=== PATIENT | male | born 1965 | race Caucasian/White ===

== ENCOUNTER 2016-12-14 13:08 | Inpatient (IN) | payer MEDICARE, MEDICAID ==
[~2016-12-14] VITALS: Ht 188 cm; Wt 93.0 kg
[2016-12-14 13:22] LABS: GLUCOSE,POINT OF CARE 143 MG/DL (70-110)
[2016-12-14] MEDS ORDERED: TOPI100 PO (13:26)
[2016-12-14] MEDS ORDERED: LAMO100 PO (13:26)
[2016-12-14] MEDS ORDERED: LEVE500T53 PO (13:26)
[2016-12-14] MEDS ORDERED: LORazepam 2 MG/ML VIAL IM ONE (13:45)
[2016-12-14] MEDS ORDERED: ZOLPIDEM TARTRATE 10 MG TABLET PO PRN (14:00)
[2016-12-14 14:01] LABS: BASOPHILS # (AUTO) 0.05 K/uL (0.00-0.20); BASOPHILS % (AUTO) 0.6 % (0.0-2.0); EOSINOPHILS # (AUTO) 0.01 K/uL (0.00-0.70); EOSINOPHILS % (AUTO) 0.06 % (1.0-6.0); HEMATOCRIT 44.3 % (41-53); HEMOGLOBIN 14.7 g/dL (13.5-17.5); LYMPHOCYTES # (AUTO) 0.8 K/uL (1.0-4.8); LYMPHOCYTES % (AUTO) 9.3 % (22.0-44.0); MEAN CORPUSCULAR HEMOGLOBIN 30.5 pg (26.0-34.0); MEAN CORPUSCULAR HGB CONC 33.1 G/dL (31.0-37.0); MEAN CORPUSCULAR VOLUME 92 fL (80-100); MONOCYTES # (AUTO) 0.8 K/uL (0.1-1.0); MONOCYTES % (AUTO) 8.4 % (2.0-9.0); NEUTROPHILS # (AUTO) 7.3 K/uL (1.8-7.7); NEUTROPHILS % (AUTO) 81.7 % (40.0-70.0); PLATELET COUNT (AUTO) 213 K/uL (150-450); RED BLOOD CELL COUNT(AUTO) 4.81 MIL/uL (4.50-5.90); RED CELL DISTRIBUTION WIDTH 13.2 % (11.5-14.5)
[2016-12-14 14:13] LABS: ANION GAP 13 mmol/L (8-16); CALCIUM, TOTAL 9.1 mg/dL (8.8-10.5); CARBON DIOXIDE 25 mmol/L (22-29); CHLORIDE 107 mmol/L (98-107); CREATININE 1.51 mg/dL (0.60-1.30); GLOMERULAR FILTR. RATE CALC 49 mL/min (>60); POTASSIUM 3.3 mmol/L (3.5-5.1); SODIUM SERUM 145 mmol/L (136-145); UREA NITROGEN, BLOOD 18 mg/dL (7-18)
[2016-12-14 14:19] LABS: ALANINE AMINOTRANSFERASE 50 U/L (12-78); ALBUMIN 4.2 g/dL (3.4-5.0); ASPARTATE AMINOTRANSFERASE 59 U/L (15-37); BILIRUBIN,TOTAL 1.8 mg/dL (0.1-1.0); TOTAL PROTEIN, SERUM 7.5 g/dL (6.4-8.2)
[2016-12-14 16:02] VITALS: BP 129/84
[2016-12-14] MEDS ORDERED: POTASSIUM CHLORIDE 20 MEQ ER TABLET PO ONE (17:00)
[2016-12-14] MEDS: BACITRACIN 28.4 GM OINTMENT TP SCH (17:07)
[2016-12-15 07:02] VITALS: BP 132/81
[2016-12-15 08:22] VITALS: BP 136/86
[2016-12-15 08:58] LABS: CHOL/HDL RATIO 2.9 (4.2-7.3); POTASSIUM 3.4 mmol/L (3.5-5.1)
[2016-12-15] MEDS: LORazepam 2 MG TABLET PO PRN (09:33)
[2016-12-15] MEDS: HALOPERIDOL 5 MG TABLET PO PRN (09:33)
[2016-12-15] MEDS: BACITRACIN 28.4 GM OINTMENT TP SCH ×2 (09:33→16:10)
[2016-12-15 16:00] VITALS: BP 134/88
[2016-12-15] MEDS: TOPIRAMATE 100 MG TABLET PO SCH (16:10)
[2016-12-15] MEDS: LamoTRIgine 100 MG TABLET PO SCH (16:10)
[2016-12-15] MEDS: LevETIRAcetam 500 MG TABLET PO SCH (16:10)
[2016-12-15] MEDS ORDERED: POTASSIUM CHLORIDE 20 MEQ ER TABLET PO ONE (16:45)
[2016-12-15] MEDS ORDERED: ACETAMINOPHEN 325 MG TABLET PO PRN (20:00)
[2016-12-15] MEDS ORDERED: IBUPROFEN 400 MG TABLET PO PRN (20:00)
[2016-12-16 06:26] VITALS: BP 127/78
[2016-12-16 08:03] LABS: ANION GAP 11 mmol/L (8-16); CALCIUM, TOTAL 8.5 mg/dL (8.8-10.5); CARBON DIOXIDE 25 mmol/L (22-29); CHLORIDE 110 mmol/L (98-107); CREATININE 1.19 mg/dL (0.60-1.30); GLOMERULAR FILTR. RATE CALC > 60 mL/min (>60); POTASSIUM 3.4 mmol/L (3.5-5.1); SODIUM SERUM 146 mmol/L (136-145); UREA NITROGEN, BLOOD 13 mg/dL (7-18)
[2016-12-16 08:12] VITALS: BP 105/66
[2016-12-16] MEDS ORDERED: POTASSIUM CHLORIDE 20 MEQ ER TABLET PO ONE (09:15)
[2016-12-16] MEDS: TOPIRAMATE 100 MG TABLET PO SCH ×2 (09:33→17:11)
[2016-12-16] MEDS: HALOPERIDOL 5 MG TABLET PO PRN (09:33)
[2016-12-16] MEDS: LamoTRIgine 100 MG TABLET PO SCH ×2 (09:33→17:11)
[2016-12-16] MEDS: LORazepam 2 MG TABLET PO PRN (09:33)
[2016-12-16] MEDS: BACITRACIN 28.4 GM OINTMENT TP SCH ×2 (09:34→17:11)
[2016-12-16] MEDS: LevETIRAcetam 500 MG TABLET PO SCH ×2 (09:34→17:11)
[2016-12-16 16:11] VITALS: BP 123/84
[2016-12-16] MEDS: OLANZapine 5 MG TABLET PO SCH (21:08)
[2016-12-17 06:39] VITALS: BP 130/82
[2016-12-17 08:36] VITALS: BP 114/73
[2016-12-17] MEDS: LamoTRIgine 100 MG TABLET PO SCH ×2 (08:36→16:28)
[2016-12-17] MEDS: CITALOPRAM HYDROBROMIDE 20 MG TABLET PO SCH (08:36)
[2016-12-17] MEDS: TOPIRAMATE 100 MG TABLET PO SCH ×2 (08:36→16:29)
[2016-12-17] MEDS: LevETIRAcetam 500 MG TABLET PO SCH ×2 (08:36→16:29)
[2016-12-17] MEDS: BACITRACIN 28.4 GM OINTMENT TP SCH ×2 (08:37→16:29)
[2016-12-17 16:00] VITALS: BP 133/75
[2016-12-17] MEDS: OLANZapine 5 MG TABLET PO SCH (20:30)
[2016-12-18 00:17] VITALS: BP 111/66
[2016-12-18] MEDS: CITALOPRAM HYDROBROMIDE 20 MG TABLET PO SCH (08:30)
[2016-12-18] MEDS: TOPIRAMATE 100 MG TABLET PO SCH ×2 (08:30→16:17)
[2016-12-18] MEDS: LamoTRIgine 100 MG TABLET PO SCH ×2 (08:30→16:17)
[2016-12-18] MEDS: LevETIRAcetam 500 MG TABLET PO SCH ×2 (08:30→16:17)
[2016-12-18] MEDS: BACITRACIN 28.4 GM OINTMENT TP SCH ×2 (08:31→16:17)
[2016-12-18 08:58] VITALS: BP 115/82
[2016-12-18 16:12] VITALS: BP 128/88
[2016-12-18] MEDS: OLANZapine 5 MG TABLET PO SCH (20:55)
[2016-12-19 06:04] VITALS: BP 113/68
[2016-12-19] MEDS: BACITRACIN 28.4 GM OINTMENT TP SCH ×2 (08:18→16:01)
[2016-12-19] MEDS: LamoTRIgine 100 MG TABLET PO SCH ×2 (08:18→16:01)
[2016-12-19] MEDS: TOPIRAMATE 100 MG TABLET PO SCH ×2 (08:18→16:01)
[2016-12-19] MEDS: CITALOPRAM HYDROBROMIDE 20 MG TABLET PO SCH (08:18)
[2016-12-19] MEDS: LevETIRAcetam 500 MG TABLET PO SCH ×2 (08:18→16:01)
[2016-12-19 08:38] VITALS: BP 118/78
[2016-12-19 16:12] VITALS: BP 121/68
[2016-12-19] MEDS: OLANZapine 5 MG TABLET PO SCH (20:33)
[2016-12-20 00:11] VITALS: BP 119/72
[2016-12-20 08:30] VITALS: BP 121/77
[2016-12-20] MEDS: TOPIRAMATE 100 MG TABLET PO SCH (09:50)
[2016-12-20] MEDS: LamoTRIgine 100 MG TABLET PO SCH (09:50)
[2016-12-20] MEDS: LevETIRAcetam 500 MG TABLET PO SCH (09:50)
[2016-12-20] MEDS: CITALOPRAM HYDROBROMIDE 20 MG TABLET PO SCH (09:50)
[2016-12-20] MEDS: BACITRACIN 28.4 GM OINTMENT TP SCH (09:52)
[2016-12-20] MEDS ORDERED: CITA20TA9 PO (11:39)
[2016-12-20] MEDS ORDERED: OLAN5TAB2 PO (11:39)
[2016-12-20] MEDS ORDERED: MAGNESIUM HYDROXIDE SUSPENSION 30 ML UDCUP PO PRN (11:45)
[2016-12-20] MEDS ORDERED: DOCUSATE SODIUM 100 MG CAPSULE PO SCH (17:00)
== END 2016-12-20 15:00 | disposition home or self-care (01) | DRG 885 ==
LOC: EMS 13:10 → B3A 14:39 → B2S 12-17 19:47
PROVIDERS: ADMIT Psychiatry & Neurology Psychiatry; ATTEND Psychiatry & Neurology Psychiatry
DX: F20.0 Paranoid schizophrenia (principal); R45.851 Suicidal ideations; G40.909 Epilepsy, unspecified, not intractable, without status epilepticus; F70 Mild intellectual disabilities; E87.6 Hypokalemia; N18.3 Chronic kidney disease, stage 3 (moderate); R74.0 Nonspecific elevation of levels of transaminase and lactic acid dehydrogenase [LDH]; Z79.899 Other long term (current) drug therapy
CPT/HCPCS: 82962; 84132; 84443; 96372; 99291; G0480; J2060